=== PATIENT | male | born 2000 | race Caucasian/White ===

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

== ENCOUNTER 2020-07-21 17:39 | Emergency (ER) | payer OTHER, SELFPAY ==
[2020-07-21 17:47] VITALS: BP 127/81; PULSE 94; RESP 16; TEMP 36.9; O2SAT 98
--- NOTE | 2020-07-21 17:58 | NUR.NOTE ---
pt has some abraisions on each vines . Nursing Note:
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
[2020-07-21 19:09] VITALS: BP 155/78; PULSE 74; RESP 18; TEMP 37.2; O2SAT 98
== END 2020-07-21 18:33 | disposition home or self-care (01) ==
PROVIDERS: Emergency Provider Student in an Organized Health Care Education/Training Program; PCP Pediatrics
DX: S80.811A Abrasion, right lower leg, initial encounter (principal); V43.51XA Car driver injured in collision with sport utility vehicle in traffic accident, initial encounter
CPT/HCPCS: 99282; 99283

== ENCOUNTER 2021-01-08 16:39 | Emergency (ER) | payer OTHER, SELFPAY ==
[2021-01-08 16:44] VITALS: BP 139/90; PULSE 71; RESP 20; TEMP 36.4; O2SAT 98
--- NOTE | 2021-01-08 17:21 | ED.GENADUL_ITS ---
Discharge Plan Disposition Patient Disposition: HOME Condition: Good Discharge Details Clinical Impression: Internal hemorrhoid Primary Care Provider: Kalin Reynoso ED Provider: Spring Med[place]in Home Meds and New Rx's Prescriptions: New hydrocortisone [Anusol-HC] 2.5 % cream with perineal applicator [address] BID-QID PRNQty: 30 RF: 1 Colace Clear 50 mg capsule 50 mg PO DAILY Qty: 5 RF: 0 Discharge Instructions Instructions: Hemorrhoids (DC) Additional Instructions: Follow-up with your primary care physician in 1 week for reevaluation Use the medication prescribed for the neck 5 days Take sitz bath once daily Metamucil Return earlier should you have new or worsening complaints including fever, chills, persistent blood in stool Discharge Data Discharge Date/Time-TO BE ENTERED AT DEPARTURE: 01/08/21 17:46 Medical Decision Making Patient appears well, he has a small internal hemorrhoid, he was prescribed Dulcolax and in addition to suppositories He will need follow-up with his primary care physician, return precautions discussed and patient understanding, no indication for blood work, source of scant bleeding and pain likely internal hemorrhoids, return patient expressed understanding No fissure noted on anoscopy, internal hemorrhoid noted Low suspicion for GI bleed, no nonsteroidals, abdominal tenderness, weakness, or dizziness, hemodynamically stable Differential Diagnosis Differential Diagnosis: Hemorrhoid, fissure, GI bleed Medical Records Medical records reviewed: Yes I reviewed the patient's medical records. Lab Data Lab results reviewed: Yes I reviewed the patient's lab results. HPI General Mode of arrival: ambulatory . Date/Time Provider Initiated Documentation: 01/08/21 16:48 . Limitations to Documentation: no limitations . Information obtained by: patient . HPI Narrative: This 20-year-old male presents with report of rectal pain with scant intermittent bleeding when he wipes for the past week. He denies any fever or chills. He denies any chest pain or shortness of breath. He denies any abdominal pain. He denies any history of constipation but has had diarrhea. He states he ate an entire bag of cranberry and subsequently developed diarrhea. Denies anticoagulation. Pain with bowel movements reportedly. Related Data Home Medications Medication Instructions Recorded Confirmed docusate sodium [Colace Clear] 50 mg PO DAILY #5 cap 06/05/21 hydrocortisone [Anusol-HC] [address] BID-QID PRN #30 g 01/08/21 Previous Rx's Medication Instructions Recorded docusate sodium [Colace Clear] 50 mg PO DAILY #5 cap 01/08/21 hydrocortisone [Anusol-HC] [address] BID-QID PRN #30 g 01/08/21 Allergies Allergy/AdvReac Type Severity Reaction Status Date / Time No Known Allergies Allergy Verified 01/08/21 16:48 General Stated Complaint: GenMedical YEIMI: 4 Review of Systems Narrative: Review of systems obtained x7 aside from where indicated in HPI [facility] Medical History Anxiety Asthma Eczema Pilonidal cyst with abscess (~07/05/18) Surgical History Adenoidectomy Myringotomy w/ PE (pressure equalizing) tubes Status post incision and drainage (~07/05/18) Family History Mother Anxiety Father Hyperlipidemia Sister Migraine Hearing loss Sister Attention deficit hyperactivity disorder, combined type Grandparent Diabetes Heart disease Neoplasm Social History Smoking/Tobacco Use Status: Never Second Hand Exposure: No Smoking risk assessment performed?: Yes Alcohol Intake: never Drug use: Never Adopted: No Foster care: No Household members: family Number of Children: 0 Education Level: college Details: CCV current occupation: [employer] in [place] Pets and animals: Yes (1 cat, 1 dog) Pets and animals: cat(s) and dog(s) Current gender identity: male Do you feel safe at home: Yes Do you feel safe in your relationship?: Yes Exam Const General: cooperative Orientation: alert and oriented x3 Resp Effort & Inspection: normal respiratory effort Cardio Rate: regular rate GI Auscultation: normal bowel sounds Other: Abdomen nontender Other: Small internal hemorrhoid noted, no active bleeding Skin General skin exam: no rashes or lesions noted Neuro General: patient alert and patient oriented x3 Course Vital Signs Vital signs: Vital Signs Temperature 36.4 C L 01/08/21 16:44 Pulse 71 01/08/21 16:44 Respiratory Rate 20 01/08/21 16:44 Blood Pressure 139/90 01/08/21 16:44 Pulse Oximetry 98 01/08/21 16:44 Temperature 36.4 C L 01/08/21 16:44 Temperature Source Skin 01/08/21 16:44 Pulse 71 01/08/21 16:44 Respiratory Rate 20 01/08/21 16:44 Respiratory Effort Non-Labored 01/08/21 16:49 Blood Pressure 139/90 01/08/21 16:44 Blood Pressure Position Sitting 01/08/21 16:44 Pulse Oximetry 98 01/08/21 16:44 Oxygen Delivery Method Room Air 01/08/21 16:44 Oxygen Flow Rate 0 01/08/21 16:44 Pain Level 0 01/08/21 16:44
== END 2021-01-08 17:46 | disposition home or self-care (01) ==
PROVIDERS: Emergency Provider Physician Assistant; PCP Pediatrics
DX: K64.8 Other hemorrhoids (principal)
CPT/HCPCS: 99283

== ENCOUNTER 2021-01-24 19:55 | Emergency (ER) | payer OTHER, SELFPAY ==
[2021-01-24 20:08] VITALS: BP 159/100; PULSE 88; RESP 16; TEMP 37.2; O2SAT 99
--- NOTE | 2021-01-24 20:30 | DI.CT_ITS ---
Exam(s) CT ABDOMEN PELVIS W EXAM: CT ABDOMEN PELVIS W CLINICAL HISTORY: RLQ pain TECHNIQUE: COMPARISON: No exams were available for comparison FINDINGS: CT examination of the abdomen and pelvis was performed with bolus infusion of 100 cc of Omnipaque 350 . Images obtained through the lung bases are unremarkable. The liver appears normal with no evidence of a focal mass. Spleen is unremarkable in appearance.. Gallbladder and bile ducts are unremarkable. Pancreas is unremarkable in appearance. Adrenals appear normal bilaterally. Kidneys appear normal with no evidence of renal mass, hydronephrosis, or nephrolithiasis. Unremarkab le bladder. There is no evidence of abdominal or pelvic adenopathy. Abdominal aorta is of normal diameter and no abnormality is seen involving major visceral branches.. Appendix is normal. No evidence diverticulitis or bowel obstruction. No significant abdominal wall hernia seen. Impression: Negative CT examination of the abdomen and pelvis. RADIATION DOSE DELIVERED: 964.38mGy.cm Total DLP 964.38mGy.cm Total DLP DATA REPOSITORY: All CT scans at this facility are submitted to the National Radiology Data Registry (NRDR) Dose Index Registry (DIR) with the [employer] (ACR). RADIATION OPTIMIZATION: All CT scans at this facility use at least one of these dose optimization te chniques: automated exposure control; mA and/or kV adjustment per patient size (includes targeted exa ms where dose is matched to clinical indication); or iterative reconstruction.
[2021-01-24 21:12] LABS: Bilirubin Negative (Negative); Blood Negative (Negative); Clarity Clear (Clear); Glucose Negative (Negative); Ketones Negative (Negative); Leukocyte Esterase Negative (Negative); Nitrite Negative (Negative); Specific Gravity 1.025 (1.005-1.025); Urobilinogen 0.2 EU/dL (Up TO 0.2)
[2021-01-24 21:13] LABS: Abs Immature Grans 0.05 10^3/uL (0.0-0.06); Absolute Basophil Count 0.08 10^3/uL (0.0-0.2); Absolute Eosinophil Count 0.13 10^3/uL (0.0-0.7); Absolute Lymphocyte Count 3.25 10^3/uL (1.2-3.4); Absolute Monocyte Count 0.86 10^3/uL (0.1-0.8); Absolute Neutrophil Count 6.65 10^3/uL (1.2-6.7); Basophils % 0.7; Eosinophils % 1.2; HCT 50.4 % (40.0-50.0); HGB 17.3 g/dL (13.5-17.5); Immature Grans % 0.5; Lymphocytes % 29.5; MCH 28.1 pg (27.0-33.0); MCHC 34.3 % (32.0-36.0); MPV 10.4 fL (8.0-11.0); Monocytes % 7.8; Neutrophils % 60.3; Nucleated RBC 0 %; Platelet Count 254 10^3/uL (130-400); RBC 6.15 10^6/uL (4.36-5.78); RDW 12.5 % (11.8-14.1); RDW-SD 37.2 fL; WBC 11.02 10^3/uL (4.4-10.8)
[2021-01-24] MEDS: Omnipaque 350 MG/ML 100 ML BTL IJ (21:29)
[2021-01-24 21:30] LABS: ALT 63 U/L (16-63); AST 41 U/L (15-37); Albumin 4.5 g/dL (3.4-5.0); Alkaline Phosphatase 122 U/L (46-116); Anion Gap 8.8 mmol/L (3-11); BUN 15 mg/dL (7-18); Bilirubin, Total 0.8 mg/dL (0.2-1.0); CO2 29.2 mmol/L (21.0-32.0); CREATININE 1.2 mg/dL (0.70-1.30); Calcium 9.2 mg/dL (8.5-10.1); Chloride 103 mmol/L (98-107); Glucose 96 mg/dL (74-106); Lipase 136 U/L (73-393); Potassium 4.3 mmol/L (3.5-5.1); Sodium 141 mmol/L (136-145); Total Protein 8.6 g/dL (6.4-8.2)
[2021-01-24] MEDS: Normal Saline - Diluent 50 ML VIAL IV (21:30)
--- NOTE | 2021-01-24 21:56 | DI.VRAD_ITS ---
PROCEDURE INFORMATION: Exam: CT Abdomen And Pelvis With Contrast Exam date and time: 01/24/2021 8:41 PM Age: 20 years old Clinical indication: Abdominal pain; Localized; Right lower quadrant (rlq); Patient HX: Rlq pain TECHNIQUE: Imaging protocol: Computed tomography of the abdomen and pelvis with contrast. COMPARISON: No relevant prior studies available. FINDINGS: Liver: Normal. No mass. Gallbladder and bile ducts: Normal. No calcified stones. No ductal dilation. Pancreas: Normal. No ductal dilation. Spleen: Normal. No splenomegaly. Adrenal glands: Normal. No mass. Kidneys and ureters: Normal. No hydronephrosis. Stomach and bowel: Unremarkable. No obstruction. No mucosal thickening. Appendix: Normal appendix. Intraperitoneal space: Unremarkable. No free air. No significant fluid collection. Vasculature: Unremarkable. No abdominal aortic aneurysm. Lymph nodes: Several prominent mesenteric root lymph nodes are nonspecific. Urinary bladder: Urinary bladder is nondistended. Reproductive: Unremarkable as visualized. Bones/joints: Unremarkable. No acute fracture. Soft tissues: Unremarkable. IMPRESSION: Negative exam. No evidence of acute appendicitis. Dictated and Authenticated by: Zackery Chambers MD. Ordering:WANDA Londono MD
--- NOTE | 2021-01-24 22:22 | ED.GENADUL_ITS ---
Discharge Plan Disposition Patient Disposition: HOME Condition: Good Discharge Details Clinical Impression: Abdominal pain Primary Care Provider: Kalin Reynoso ED Provider: Spring [place] Home Meds and New Rx's Prescriptions: No Action hydrocortisone [Anusol-HC] 2.5 % cream with perineal applicator 1 applic [place] BID-QID PRNQty: 30 RF: 1 Colace Clear 50 mg capsule 50 mg PO DAILY Qty: 5 RF: 0 Discharge Instructions Instructions: Abdominal Pain (ED) Additional Instructions: Repeat blood pressure with primary care physician Follow-up with your doctor regarding your abdominal pain Try eating more fiber and staying away from fatty foods like calcium abdominal Tylenol and ibuprofen as needed for discomfort, return earlier with fever, chills, or with any new or worsening complaints Recommend recheck in 12 hours Discharge Data Discharge Date/Time-TO BE ENTERED AT DEPARTURE: 01/24/21 22:35 Medical Decision Making Denies any urinary complaints, no leukocytosis, CT without evidence of appendicitis per virtual radiology interpretation in my review Discussed diet change, no evidence of acute cholecystitis on CT scan, patient will follow up with his primary care physician Discharged home in stable condition with stable vitals, declines any analgesia tried Return precautions discussed, recheck in 12 to 24 hours with persistent pain recommended Differential Diagnosis Differential Diagnosis: Appendicitis, cholecystitis, IBS, urinary tract infection Medical Records Medical records reviewed: Yes I reviewed the patient's medical records. Lab Data Lab results reviewed: Yes I reviewed the patient's lab results. HPI General Mode of arrival: ambulatory . Date/Time Provider Initiated Documentation: 01/24/21 20:09 . Limitations to Documentation: no limitations . Information obtained by: patient . HPI Narrative: This 20-year-old male presents with abdominal pain for the past several hours. He states that the pain is around his umbilicus. He denies any radiation of pain. He denies any testicular pain or urinary symptoms. He denies any fever or chills. Denies chest pain or shortness of breath. He denies dizziness or weakness. States that his pain is improved actually with standing and walking and worsened when he lays flat. He denies nausea or vomiting or any additional complaints at this time. Related Data Home Medications Medication Instructions Recorded Confirmed docusate sodium [Colace Clear] 50 mg PO DAILY #5 cap 01/08/21 01/24/21 hydrocortisone [Anusol-HC] 1 applic [place] BID-QID PRN #30 g 01/08/21 01/24/21 Previous Rx's Medication Instructions Recorded docusate sodium [Colace Clear] 50 mg PO DAILY #5 cap 01/08/21 hydrocortisone [Anusol-HC] 1 applic [place] BID-QID PRN #30 g 01/08/21 Allergies Allergy/AdvReac Type Severity Reaction Status Date / Time No Known Allergies Allergy Verified 01/24/21 20:16 General Stated Complaint: Abd Prob YEIMI: 3 Review of Systems Narrative: Review of systems obtained x7 aside from where indicated in HPI [facility] Medical History Anxiety Asthma Eczema Pilonidal cyst with abscess (~07/05/18) Surgical History Adenoidectomy Myringotomy w/ PE (pressure equalizing) tubes Status post incision and drainage (~07/05/18) Family History Mother Anxiety Father Hyperlipidemia Sister Migraine Hearing loss Sister Attention deficit hyperactivity disorder, combined type Grandparent Diabetes Heart disease Neoplasm Social History Smoking/Tobacco Use Status: Never Second Hand Exposure: No Smoking risk assessment performed?: Yes Alcohol Intake: never Drug use: Never Adopted: No Foster care: No Household members: family Number of Children: 0 Education Level: college Details: CCV current occupation: [employer] in [place] Pets and animals: Yes (1 cat, 1 dog) Pets and animals: cat(s) and dog(s) Current gender identity: male Do you feel safe at home: Yes Do you feel safe in your relationship?: Yes Exam Const General: cooperative and no acute distress HENMT Other: moist mucous membranes Resp Effort & Inspection: normal respiratory effort Cardio Rate: regular rate GI Other: Periumbilical abdominal tenderness without rebound or guarding Skin General skin exam: no rashes or lesions noted Neuro General: patient alert and patient oriented x3 Course Vital Signs Vital signs: Vital Signs Temperature 37.2 C 01/24/21 20:08 Pulse 88 01/24/21 20:08 Respiratory Rate 16 01/24/21 20:08 Blood Pressure 159/100 H 01/24/21 20:08 Pulse Oximetry 99 01/24/21 20:08 Temperature 37.2 C 01/24/21 20:08 Temperature Source Oral 01/24/21 20:08 Pulse 88 01/24/21 20:08 Respiratory Rate 16 01/24/21 20:08 Respiratory Effort Non-Labored 01/24/21 20:14 Blood Pressure 159/100 H 01/24/21 20:08 Blood Pressure Position Standing 01/24/21 20:08 Pulse Oximetry 99 01/24/21 20:08 Oxygen Delivery Method Room Air 01/24/21 20:08 Oxygen Flow Rate 0 01/24/21 20:08 Pain Level 6 01/24/21 20:17 Lab/Test Results Lab/Test Results: Laboratory Tests Range/Units 01/24/21 01/24/21 01/24/21 20:05 21:00 21:00 WBC (4.4-10.8) 10^3/uL 11.02 H RBC (4.36-5.78) 10^6/uL 6.15 H Hgb (13.5-17.5) g/dL 17.3 Hct (40.0-50.0) % 50.4 H MCV (80-95) fL 82.0 MCH (27.0-33.0) pg 28.1 MCHC (32.0-36.0) % 34.3 RDW (11.8-14.1) % 12.5 Plt Count (130-400) 10^3/uL 254 MPV (8.0-11.0) fL 10.4 Immature Gran % 0.5 Neutrophils % 60.3 Lymphocytes % 29.5 Monocytes % 7.8 Eosinophils % 1.2 Basophils % 0.7 Nucleated RBC % % 0 Absolute Neutrophils (1.2-6.7) 10^3/uL 6.65 Absolute Lymphocytes (1.2-3.4) 10^3/uL 3.25 Absolute Monocytes (0.1-0.8) 10^3/uL 0.86 H Absolute Eosinophils (0.0-0.7) 10^3/uL 0.13 Absolute Basophils (0.0-0.2) 10^3/uL 0.08 Sodium (136-145) mmol/L 141 Potassium (3.5-5.1) mmol/L 4.3 Chloride (98-107) mmol/L 103 Carbon Dioxide (21.0-32.0) mmol/L 29.2 Anion Gap (3-11) mmol/L 8.8 BUN (7-18) mg/dL 15 Creatinine (0.70-1.30) mg/dL 1.2 Estimated GFR/1.73 m2 (mL/min/1.73m2) >= 60.00 Glucose (74-106) mg/dL 96 Calcium (8.5-10.1) mg/dL 9.2 Total Bilirubin (0.2-1.0) mg/dL 0.8 AST (15-37) U/L 41 H ALT (16-63) U/L 63 Alkaline Phosphatase (46-116) U/L 122 H Total Protein (6.4-8.2) g/dL 8.6 H Albumin (3.4-5.0) g/dL 4.5 Lipase (73-393) U/L 136 Urine Color (Yellow) Yellow Urine Clarity (Clear) Clear Urine pH (5-8) 7.0 Ur Specific Shirley (1.005-1.025) 1.025 Urine Protein (Negative) mg/dL Negative Urine Ketones (Negative) mg/dL Negative Urine Blood (Negative) Negative Urine Nitrite (Negative) Negative Urine Bilirubin (Negative) Negative Urine Urobilinogen (Up TO 0.2) EU/dL 0.2 Ur Leukocyte Esterase (Negative) Negative Urine Glucose (Negative) mg/dL Negative
[2021-01-24 22:30] VITALS: BP 125/49; PULSE 62; RESP 16; O2SAT 97
== END 2021-01-24 22:35 | disposition home or self-care (01) ==
PROVIDERS: Emergency Provider Physician Assistant; PCP Pediatrics
DX: R10.9 Unspecified abdominal pain (principal)
CPT/HCPCS: 36415; 80053; 83690; 99285; 74177; 81003; 85025; 99283; J3490

== ENCOUNTER 2024-05-16 11:34 | Emergency (ER) | payer MEDICAID, SELFPAY ==
[2024-05-16 11:35] VITALS: BP 137/74; PULSE 90; RESP 18; TEMP 36.9; O2SAT 97
--- NOTE | 2024-05-16 11:45 | DI.RAD_ITS ---
Exam(s) XR HAND RT COMPLETE EXAM: XR HAND RT COMPLETE CLINICAL HISTORY: Right thumb crush injury, also injured distal 2-4. TECHNIQUE: 2D digital imaging was performed. COMPARISON: No exams were available for comparison FINDINGS: 3 views No evidence of acute fracture nor dislocation nor abnormal soft tissue densities. No radiopaque fore ign bodies. No osseous lesions. Bone density normal. IMPRESSION: No acute osseous findings. DATA REPOSITORY: RADIATION DOSE DELIVERED:
--- NOTE | 2024-05-16 12:04 | ED.GENADUL_ITS ---
Discharge Plan Disposition Patient Disposition: Home Condition: Stable Discharge Details Clinical Impression: Contusion of right thumb Primary Care Provider: Cindy,Local ED Provider: Lalita Reardon Home Meds and New Rx's Prescriptions: No Action No Known Home Meds Discharge Instructions Instructions: Minor Contusion ED Additional Instructions: You were seen in the emergency department today for evaluation of a thumb injury. He had a full physical examination performed and an x-ray that was without any sign of fracture. You were given a splint for comfort and can use Tylenol and ibuprofen to manage pain from your injury. Please follow-up with your primary care provider in the next few days to discuss this visit and any symptoms that change, worsen, or persist. Thank you for allowing us to be part of your care. Stand Alone Forms: Work Release HPI General Mode of arrival: ambulatory . Date/Time Provider Initiated Documentation: 05/16/24 11:39 . Limitations to Documentation: no limitations . Information obtained by: patient and old records reviewed . HPI Narrative: HPI: This is a 23-year-old male patient, previously healthy presenting for evaluation of a right thumb injury. The patient works at [employer], was adjusting a metal piston that came loose and crushed his thumb against the metal side of the machine. He also struck the distal aspect of his right second third and fourth digits. This happened last night, the patient did not sustain any additional injury. He reports that he has not tried anything for pain, had a small laceration on the back of his thumb that is hemostatic, states that he is having ongoing pain at this time. He is able to bend his thumb though it does cause him some pain to do so. He has no sensory deficits, appears well- perfused. Otherwise in his normal state of health. He is not sure when his last tetanus vaccine was but is not interested in repeat vaccination today. Exam: Gen: Awake and alert, in no apparent distress HEENT: Non-icteric sclera Neck: Supple Lungs: No apparent respiratory distress, normal respiratory effort. CV: Appears well perfused Abdomen: Non-distended MSK: Moves 4 extremities without apparent limitation in ROM. The patient has bruising of the right thumb with a very small subungual hematoma, no eponychial fold involvement. Preserved range of motion passively of the thumb, some reproduction of pain with flexion against resistance. No difficulty with range of motion of the 2nd through 4th digits of the right hand, cap refill brisk, no sensory deficits Skin: Visualized skin without rashes, cyanosis. 3 mm well-approximated laceration to the dorsal aspect of the left thumb over the proximal phalanx, hemostatic Neuro: Normal Gait, no obvious focal deficits or facial asymmetry. Speaks in full, clear sentences. Psych: Appropriate for situation. MDM: This is a 23-year-old male patient presenting for evaluation of a hand injury. My differential includes but is not limited to fracture, contusion, ligamentous injury, dislocation. The small laceration on the back of the thumb does not require any wound care or management. The patient is not desiring of any medications for pain at this time, but we will proceed with x-ray imaging of the affected right hand to evaluate for injury ED Course: X-ray imaging negative for fracture or dislocation making contusion of the most likely etiology of the patient's symptoms. I did provide him with a splint for comfort, I recommended conservative management with Tylenol, ibuprofen, and primary care follow-up. At this time, the patient has had a full medical evaluation and is safe for discharge to home. They are hemodynamically stable, ambulatory, and tolerating PO. They are understanding of the follow-up plan and return precautions. They left our facility without incident. Lalita Reardon MD Related Data Home Medications ?Medication ?Instructions ?Recorded ?Confirmed Unknown [No Known Home Meds] 05/16/24 05/16/24 Allergies Allergy/AdvReac Type Severity Reaction Status Date / Time No Known Allergies Allergy Verified 05/16/24 11:39 General Stated Complaint: Orthopedic YEIMI: 4 Course Vital Signs Vital signs: Vital Signs Temperature 36.9 C 05/16/24 11:35 Pulse 90 05/16/24 11:35 Respiratory Rate 18 05/16/24 11:35 Blood Pressure 137/74 05/16/24 11:35 Pulse Oximetry 97 05/16/24 11:35 Temperature 36.9 C 05/16/24 11:35 Temperature Source Oral 05/16/24 11:35 Pulse 90 05/16/24 11:35 Respiratory Rate 18 05/16/24 11:35 Respiratory Effort Normal, Non-Labored 05/16/24 11:40 Blood Pressure 137/74 05/16/24 11:35 Blood Pressure Position Sitting 05/16/24 11:35 Pulse Oximetry 97 05/16/24 11:35 Oxygen Delivery Method Room Air 05/16/24 11:35 Oxygen Flow Rate 0 05/16/24 11:35 Medical Decision Making Quality:SDOH Health Related Social Needs: No Data to Display PFSH All Active Problems (Updated 05/16/24 @ 12:59 by Lalita Reardon MD) Contusion of right thumb (Acute) Constipation in male (Acute) due to poor diet/lack of dietary fiber Chronic anal fissure (Acute) Abdominal pain (Acute) BMI (body mass index), pediatric, 95-99% for age (Acute 01/05/14) Medical History (Updated 05/16/24 @ 12:59 by Lalita Reardon MD) Rhianna-rectal abscess Asthma Eczema Anxiety Surgical History Status post incision and drainage (~07/05/18) Myringotomy w/ PE (pressure equalizing) tubes Adenoidectomy Family History Mother Anxiety Father Hyperlipidemia Sister Migraine Hearing loss Sister Attention deficit hyperactivity disorder, combined type Grandparent Diabetes Heart disease Neoplasm Social History Smoking/Tobacco Use Status: Never Second Hand Exposure: No Smoking risk assessment performed?: Yes Alcohol Intake: never Drug use: Never Substance use type: does not use Adopted: No Foster care: No Household members: family Housing: house Number of Children: 0 Education Level: college Details: [employer] current occupation: [employer] in [place] Pets and animals: Yes (1 cat, 1 dog) Pets and animals: cat(s) and dog(s) Current gender identity: male Do you feel safe at home: Yes Do you feel safe in your relationship?: Yes
--- OUTSIDE RECORDS SUMMARY | 2024-05-16 12:19 | XMS_ITS | Encounter Summary ---
Author Organization [facility] Address [address] [place] [address] Care Team Providers Care Casino Investigator Name Role Phone Unavailable Primary Care Provider Unavailabl e Encounter Details Date Type Department Care Team (Late st Contact Info) Description 08/31/2005 Before PRISM Converted Visit (Maple) [facility] - Maple conversion [address], [place] [id number] Tony Laws MD [address] [facility], [facility] [address] [place] [id number] Social History Tobacco Use Types Packs/Day Years Used Date Smoking Tobacco: Never Assessed Sex and Gender Information Value Date Recorded Sex Assigned at Not on file Gender Identity Not on file Sexual Orientation Not on file documented as of this encounter Progress Notes * Tony Laws MD - 10/06/2009 0540 EST DIVISION OF OTOLARYNGOLOGY September 04, 2005 Fariha Glover MD [facility] [address] [place] [address] [place] [address] R: DOS Dear Dr. Glover: Thanks very much for Trechristofer Bland. He was seen in my office at the request of the familywhen they were here with their sister for a nasal examination. Endoscopic examination of the nasopharynx revealed small adenoid tissue. There was no significant blockage. He did have purulent rhinitis in both nasal cavities. Ear drums were normal today with normal tympanograms and normal hearing. Ithink with his history, I will just check him back in three months and see how hes been doing. Wellmake some plans from there. Thanks for the referral. Sincerely, Signed by Tony Laws MD 09/04/2005 17:16 Lori Chen MD Tony Laws MD - Tony Laws MD A - wlp Job ID: [id number] Document ID: [id number] cc: Fariha Glover MD * Tony Laws MD - 10/06/2009 0540 EST DIVISION OF OTOLARYNGOLOGY PROGRESS/FOLLOWUP NOTE - 08/31/2005 S:has had chronic purulent rhinitis. He had his adenoids removed three or four years ago. He has had troubles during the past year. Prior to that he had been okay following his surgery. He has had some complains of ear pain also, but no recent ear infections. O:alert, cooperative male in no distress today. Both tympanic membranes show some mild fluid, but tympanograms were normal today with a normal speech member of congress threshold. Speech member of congress thresholds are 5 decibels in both earsand normal hearing on a test. Both ear canals look normal. Oral cavity reveals 2+ tonsils. Palpation of the neck reveals no adenopathy. Nasal exam reveals a purulent rhinitis bilaterally with a midline septum and normal turbinates. Cophenylcaine was sprayed in the right nasal cavity revealing small adenoid tissue with purulent rhinitis throughout the nasal cavity. Palpation of the neck reveals no adenopathy. A: Chronic purulent rhinitis. P: Follow up in three months. Contingency: Re-adenoidectomy and/or CT scan. Signed by Tony Laws MD 09/04/2005 17:16 Lori Chen MD Tony Laws MD - Tony Laws MD A - wlp Job ID: [id number] Document ID: [id number] cc: documented in this encounter Plan of Treatment Not on file documented as of this encounter Visit Diagnoses Not on filedocumented in this encounter
--- OUTSIDE RECORDS SUMMARY | 2024-05-16 12:19 | XMS_ITS | Referral Summary ---
Author Organization [facility] Address [address] [place] [address] Care Team Providers Care Leather Production Artisan Name Role Phone Unknown, Provider Primary Care Provider [phone] Social History Tobacco Use Types Packs/Day Years Used Date Smoking Tobacco: Never Assessed Sex and Gender Information Value Date Recorded Sex Assigned at Not on file Gender Identity Not on file Sexual Orientation Not on file Plan of Treatment Not on file Care Teams Leather Production Artisan Relationship Specialty Start Date End Date Unknown, Provider, PCP - General 12/02/15
--- OUTSIDE RECORDS SUMMARY | 2024-05-16 12:19 | XMS_ITS | Encounter Summary ---
Author Organization [facility] Address [address] [place] [address] Care Team Providers Care Assessment Analyst Name Role Phone Unknown, Provider Primary Care Provider Encounter Details Date Type Department Care Team (Late st Contact Info) Description 11/11/2023 Lab Requisition [facility] - [address] [address] Channing Grossman PA-C [address] [place] [phone] Encounter for other general examination Social History Tobacco Use Types Packs/Day Years Used Date Smoking Tobacco: Never Assessed Sex and Gender Information Value Date Recorded Sex Assigned at Not on file Gender Identity Not on file Sexual Orientation Not on file documented as of this encounter Plan of Treatment Not on file documented as of this encounter Procedures Procedure Name Priority Date/Time Associated Diagnosis Comments HEPATITIS A TOTAL ANTIBODY - IMMUNITY Today 11/11/2023 9:30 EDT Encounter for other general examination HEPATITIS A ANTIBODY IGM Today 11/11/2023 9:30 EDT Encounter for other general examination HEPATITIS A TOTAL ANTIBODY W REFLEX Today 11/11/2023 9:30 EDT Encounter for other general examination HEPATITIS B CORE ANTIBODY (TOTAL) Today 11/11/2023 9:30 EDT Encounter for other general examination HEPATITIS B SURFACE ANTIBODY Today 11/11/2023 9:30 EDT Encounter for other general examination HEPATITIS B SURFACE ANTIGEN Today 11/11/2023 9:30 EDT Encounter for other general examination HEMOGLOBIN S SCREEN Today 11/11/2023 9 :30 EDT Encounter for other general examination documented in this encounter Results * HEPATITIS A ANTIBODY IGM (11/11/2023 9:30 EDT) Hepatitis A Antibody, IgM Negative Negative 11/12/2023 11:39 EDT [facility] Blood VENOUS BLOOD / Unknown 11/11/2023 9:30 EDT 11/11/2023 13:46 EDT Narrative [facility] - 11/12/2023 11:39 EDT The results of this assay can be falsely lowered due to the consumption of Biotin. Channing Grossman PA-C CHEMISTRY & BL OOD GAS ORDERABLES Performing Organization Address City/[facility]/ZIP Co de Phone Number [facility] [address] [place] [address] * HEPATITIS B CORE ANTIBODY (TOTAL) (11/11/2023 9:30 EDT) Pathologist [facility] Hepatitis B Core Ab, Total Negative Negative 11/12/2023 10:16 EDT [facility] Blood VENOUS BLOOD / Unknown 11/11/2023 9:30 EDT 11/11/2023 13:46 EDT Channing Grossman PA-C CHEMISTRY & BL OOD GAS ORDERABLES [facility] [address] [place] [address] * HEPATITIS B SURFACE ANTIGEN (11/11/2023 9:30 EDT) Hep B Surface Ag Negative Negative 11/12/2023 9:36 EDT [facility] Blood VENOUS BLOOD / Unknown 11/11/2023 9:30 EDT 11/11/2023 13:46 EDT Channing Grossman PA-C CHEMISTRY & BL OOD GAS ORDERABLES Performing Organization Address [facility] Co de Phone Number [facility] [address] [place] [address] * HEPATITIS B SURFACE ANTIBODY (11/11/2023 9:30 EDT) Hep B Surface Ab, Quantitative 44.7 See Note mIU/mL 11/12/2023 9:29 EDT [facility] Comment: Reference Range for Hep B Surface Ab, Quant: Positive: >= 10.0 mIU/mL Negative: ??< 10.0 mIU/mL Patient is presumed to be immune to infection with Hepatitis B Virus. Hep B Surface Ab, Qualitative Positive See Note 11/12/2023 9:29 EDT [facility] Comment: Reference Range for Hep B Surface Ab, Qual: Unvaccinated: ??Negative Vaccinated: ??Positive Blood VENOUS BLOOD / Unknown 11/11/2023 9:30 EDT 11/11/2023 13:46 EDT Channing Grossman PA-C CHEMISTRY & BL OOD GAS ORDERABLES Performing Organization Address [facility] de Phone Number [facility] [address] [place] [address] * (ABNORMAL) HEPATITIS A TOTAL ANTIBODY W REFLEX (11/11/2023 9:30 EDT) Hepatitis A Antibody, Total Positive(A ) Negative 11/12/2023 10:38 EDT [facility] Blood VENOUS BLOOD / Unknown 11/11/2023 9:30 EDT 11/11/2023 13:46 EDT Narrative [facility] - 11/12/2023 10:38 EDT The result of this assay can be falsely elevated (Positive) due to the consumption of Biotin. Channing Grossman PA-C CHEMISTRY & BL OOD GAS ORDERABLES Performing Organization Address [facility]/ZIP Co de Phone Number [facility] [address] [place], [place] [phone] * (ABNORMAL) HEPATITIS A TOTAL ANTIBODY - IMMUNITY (11/11/2023 9:30 EDT) Hepatitis A Antibody, Total Positive(A ) Negative 11/12/2023 10:19 EDT [facility] Comment:This test is for det ection of immunity or past infection with Hepatitis A Virus, not acute disease. Reflex to hepatitis A IgM antibody NOT performed. Blood VENOUS BLOOD / Unknown 11/11/2023 9:30 EDT 11/11/2023 13:46 EDT Narrative [facility] - 11/12/2023 10:19 EDT The result of this assay can be falsely elevated (Positive) due to the consumption of Biotin. Channing Grossman PA-C CHEMISTRY & BL OOD GAS ORDERABLES Performing Organization Address [facility] Co de Phone Number [facility] [address] [place] [phone] * HEMOGLOBIN S SCREEN (11/11/2023 9:30 EDT) Pathologist [facility] Sickle Cell Prep Negative Negative 11/12/2023 13:26 EDT [facility] Blood VENOUS BLOOD / Unknown 11/11/2023 9:30 EDT 11/11/2023 13:46 EDT Channing Grossman PA-C HEMATOLOGY & P F4 ORDERABLES Performing Organization Address City/[facility] Co de Phone Number [facility] [address] [place] [address], [place] [phone] documented in this encounter Visit Diagnoses Diagnosis Encounter for other general examination documented in this encounter Care Teams Assessment Analyst Relationship Specialty Start Date End Date Unknown, Provider, PCP - General 12/02/15 documented as of this encounter
--- OUTSIDE RECORDS SUMMARY | 2024-05-16 12:19 | XMS_ITS | Continuity of Care Document ---
Author Name [facility] Organization [facility] Care Team Providers Care Channel Cementer Name Role Phone [facility] Unavailable Unavailable Allergies, Adverse Reactions, Alerts Combined list of allergies from Department of Defense and Veterans Affairs facilities. It does not include entries that were removed or entered in error. Substance Category Reaction Severity Reaction type Status Date Reported Comments Source No Known Allergies Drug allergy (disorder) active 2 [facility] Immunizations Combined list of available immunizations from the Department of Defense and Veterans Affairs facilities. Immunization Series Date Given Administered By Site Reaction Lot Number CVX Code Drug Manager Solution Status Comments Source tetanus, diphtheria, acellular pertu is 2021 zzRig ht Arm [id number] GlaxoSmithKli ne complet ed tetanus, diphtheri a, acellular pertussis 11/04/21 Given Ambulat ory Pharmac y hepatitis A adult vaccine 2021 zzLef t Arm [id number] 52 GlaxoSmithKli ne complet ed hepatitis A adult vaccine 11/04/21 Given Ambulat ory Pharmac y meningococcal A,C,Y,W-135 (MCV4P) 2021 zzLef t Arm [id number] sanofi pasteur complet ed meningoco ccal A,C,Y,W-1 35 (MCV4P) 11/04/21 Given Ambulat ory Pharmac y adenovirus vaccine, live 2021 [id number] 143 Teva Pharmaceut[employer] ls complet ed adenoviru s vaccine, live 11/04/21 Given Ambulat ory Pharmac y influenza, injectable, quadrivalent- pf 2021 zzLef t Arm [id number] 150 GlaxoSmithKli ne complet ed influenza , injectabl e, quadrival ent-pf 11/04/21 Given Ambulat ory Pharmac y poliovirus vaccine, inactivated 2021 zzRig ht Arm [id number] 10 GlaxoSmithKli ne complet ed polioviru s vaccine, inactivat ed 11/04/21 Given Ambulat ory Pharmac y measles, mumps and rubella virus vaccine 0 2021 EXEMPT 03 Transcribed (TRS) Not Given measles, mumps and rubella virus vaccine DoD poliovirus vaccine, inactivated 1 2021 JORGE GEORGE [id number] 10 [facility] (B) complet ed polioviru s vaccine, inactivat ed DoD varicella virus vaccine 0 2021 EXEMPT 21 Transcribed (TRS) Not Given varicella virus vaccine DoD hepatitis B vaccine, unspecified formulation 0 2021 EXEMPT 45 Transcribed (TRS) Not Given hepatitis B vaccine, unspecifi ed formulati on DoD hepatitis A vaccine, adult dosage 1 2021 JORGE GEORGE [id number] 52 [facility] ([facility]) complet ed hepatitis A vaccine, adult dosage DoD meningococcal polysaccharid e (groups A, C, Y and W-135) diphtheria toxoid conjugate vaccine (MCV4P) 1 2021 JORGE GEORGE [id number] 114 Sanofi Pasteur ([facility]) complet ed meningoco ccal polysacch aride (groups A, C, Y and W-135) diphtheri a toxoid conjugate vaccine (MCV4P) DoD tetanus toxoid, reduced diphtheria toxoid, and acellular pertu is vaccine, adsorbed 1 2021 JORGE GEORGE [id number] 115 [facility] ([facility]) complet ed tetanus toxoid, reduced diphtheri a toxoid, and acellular pertussis vaccine, adsorbed DoD Adenovirus, type 4 and type 7, live, oral 1 2021 JORGE GEORGE [id number] [facility] ([facility]) complet ed Adenoviru s, type 4 and type 7, live, oral [facility] Influenza, injectable, quadrivalent, preservative free 1 2021 JORGE GEORGE [id number] 150 [facility] ([facility]) complet ed Influenza , injectabl e, quadrival ent, preservat karolina free DoD tuberculin purified protein derivative 2021 zzLef t Arm [id number] 96 [facility] complet ed Patient Tolerance : Negative Ambulat ory Pharmac y tuberculin skin test; purified protein derivative solution, intradermal 1 2021 ZACHARY IYER O [id number] 96 [place] (PD) complet ed tuberculi n skin test; purified protein derivativ e solution, intraderm al DoD influenza, injectable, quadrivalent 2020 [id number] 158 [employer] complet ed influenza , injectabl e, quadrival ent 05/29/21 Given Ambulat ory Pharmac y influenza, injectable, quadrivalent, contains preservative 0 2020 [id number] 158 [employer] (SEQ) complet ed influenza , injectabl e, quadrival ent, contains preservat karolina DoD COVID Vaccine Moderna 2020 [id number] complet ed COVID Vaccine Moderna 12/31/20 Given Ambulat ory Pharmac y SARS-COV-2 (COVID-19) vaccine, mRNA, spike protein, LNP, preservative free, 100 mcg or 50 mcg dose 2 2020 [id number] 207 Moderna [employer] (MOD) complet ed SARS-COV- 2 (COVID-19 ) vaccine, mRNA, spike protein, LNP, preservat karolina free, 100 mcg or 50 mcg dose DoD COVID Vaccine Moderna 2020 [id number] complet ed COVID Vaccine Moderna 12/01/20 Given Ambulat ory Pharmac y SARS-COV-2 (COVID-19) vaccine, mRNA, spike protein, LNP, preservative free, 100 mcg or 50 mcg dose 1 2020 [id number] 207 Moderna [employer] (MOD) complet ed SARS-COV- 2 (COVID-19 ) vaccine, mRNA, spike protein, LNP, preservat karolina free, 100 mcg or 50 mcg dose DoD influenza, injectable, quadrivalent 2019 [id number] 278 158 [employer] complet ed influenza , injectabl e, quadrival ent 06/18/20 Given Ambulat ory Pharmac y influenza, injectable, quadrivalent, contains preservative 1 2019 [id number] 278 158 [employer] (SEQ) complet ed influenza , injectabl e, quadrival ent, contains preservat karolina DoD Vital Signs Combined list of inpatient and outpatient Vital Signs from Department of Defense and Veterans Affairs, ranging from 12 months to all on record, depending upon the facility. Vital Sign Value Date Comments Source No data available for this section Ambulatory Pharmacy Encounters Combined list of: 1) Encounters from Department of Veterans Affairs facilities going back up to thelast 18 months. 2) Encounters from the Department of [facility] facilities going back up to 280 months. Location Location Details Encounter Type Encounter Number Reason For Visit Attending Provider ADM Date DC Date Status Disposition Source [facility](P Primary Care) OUTPATIENT [id number] Notes Entered by: SHADE IYER 02 Nov 2021 0736 ------- ------- ------- ------- -- IET PPD ZACHARY IYER 11/02 Released w/o Limitations [facility](I EP Primary Care) [facility](P Optometry ) OUTPATIENT [id number] DALTON RIVERA 11/02 Released w/o Limitations [facility](I EP Optomet ry) [facility](P Primary Care) OUTPATIENT [id number] Notes Entered by: LAURA MARKHAM 07 Nov 2021 1012 ------- ------- ------- ------- -- IEJORGE CHILD 11/07 Released w/o Limitations [facility](I EP Primary Care) [facility]([address]) OUTPATIENT [id number] Notes Entered by: UZIEL JEFFREY 07 Feb 2022 1000 ------- ------- ------- ------- -- [facility] GEOVANY JEFFREY 02/07 Released w/o Limitations [facility]([address]) [facility]([address]) OUTPATIENT [id number] Sinus congest ion - Muscle aches MAGGIE BOX 02/22 Released with Work/Duty Limitations [facility]([address]) [facility]([address]) OUTPATIENT [id number] Notes Entered by: UZIEL JEFFREY 23 Mar 2022 1030 ------- ------- ------- ------- -- [facility]- GEOVANY CARNEY 03/23 Released with Work/Duty Limitations [facility]([address]) Procedures Combined list of: 1) Procedures from Department of Veterans Affairs facilities going back up to thelast 18 months, not all VA non-surgical procedures are included; 2) All procedures from the Department of Defense facilities. Procedure Procedure Type Code Date Perfomer Comments Sourc e No data available for this section Ambulato ry Pharmacy Skin Test Anergy Tuberculin Intradermal Skin Test Anergy Tuberculin Intradermal 49200 IYER, CHEEDZA IPPD; Series #: 1; 0.1 mL; ID; Left Arm; Mfg: [place]; Lot: [id number]; VIS given. [facility] Ophthalmological New Patient Start Intermediate Level Care Ophthalmological New Patient Start Intermediate Level Care [address] [facility] Spectacles Services Fitting Monofocal Except For Aphakia Spectacles Services Fitting Monofocal Except For Aphakia [address] [facility] Determination Of Refractive State Determination Of Refractive State [address] [facility] Immunization Administration By Injection, One Vaccine Immunization Administration By Injection, One Vaccine 24225 [facility] Immunization Administration By Injection, Each Additional Vaccine Immunization Administration By Injection, Each Additional Vaccine 57263 [facility] Hepatitis A Vaccine Adult Dosage (Intramuscular Use) Hepatitis A Vaccine Adult Dosage (Intramuscular Use) 9[address]23 [facility] Vaccines Viral Polio, Inactivated Vaccines Viral Polio, Inactivated 29965 [facility] Meningococcal Conjugate Vaccine Quadrivalent Serogroups A, C, Y, W-135 Meningococcal Conjugate Vaccine Quadrivalent Serogroups A, C, Y, W-135 80129 [facility] Tdap Vaccine Tdap Vaccine 54563 [facility] Immunization Admin Intranasal / Oral Each Additional Vaccine Immunization Admin Intranasal / Oral Each Additional Vaccine 24200 [facility] Vaccines Adenovirus Type 4 Live, For Oral Use Vaccines Adenovirus Type 4 Live, For Oral Use 58029 [facility] Vaccines Adenovirus Type 7 Live, For Oral Use Vaccines Adenovirus Type 7 Live, For Oral Use 59102 [facility] Influenza Split Virus Vaccine IM Preserv Free 0.5mL Dosage Quadrivalent Influenza Split Virus Vaccine IM Preserv Free 0.5mL Dosage Quadrivalent 40968 [facility] INFLUENZA VIRUS VACCINE, QUADRIVALENT (IIV4), SPLIT VIRUS, PRESERVATIVE FREE, 0.5 ML DOSAGE, FOR INTRAMUSCULAR USE [facility] DETERMINATION OF REFRACTIVE STATE [facility] EAR MOLD/INSERT, NOT DISPOSABLE, ANY TYPE [facility] SKIN TEST; TUBERCULOSIS, INTRADERMAL [facility] Social History Combined list of available smoking, tobacco, and other social history from Department of Defense and Veterans Affairs facilities. Social History Type Response Date Comment Sourc e This section is an empty social history section. DoD Assessment and Plan Combined list of future care activities from Department of Defense and Veterans Affairs facilities (e.g., assessment and plan notes, appointments, orders, and referrals). Additional future care activities may be listed in the Plan of Care section. Result Assessment and Plan Date Source Assessment and Plan No data available for this section 05/16/2024 Ambulatory Pharmacy Functional Status Combined list of recent functional and cognitive assessments recorded at Department of Defense and Veterans Affairs (VA).VA Functional [place] Measurement (FIM) Scale: 1 = Total Assistance (Subject = 0% +), 2 = Maximal Assistance (Subject = 25% +), 3 = Moderate Assistance (Subject = 50% +), 4 = Minimal Assistance (Subject = 75% +), 5 = Supervision, 6 = Modified [place] (Device), 7 = Complete [place] (Timely, Safely). Assessment Date/Time Source Assessment Type Assessment Skill Assessment Score Assessment Details No data available for this section
--- OUTSIDE RECORDS SUMMARY | 2024-05-16 12:19 | XMS_ITS | Encounter Summary ---
Author Organization [facility] Address [address] [place] [address] Care Team Providers Care Motor Vehicle Or Caravan Salesperson Name Role Phone Unknown, Provider Primary Care Provider [phone] Encounter Details Date Type Department Care Team (Late st Contact Info) Description 12/10/2022 Lab Requisition [facility] Pathology & Laboratory Medicine - [address] [id number] Channing Grossman PA-C [address] [place] [address] Encounter for other general examination [...] Procedure Name Priority Date/Time Associated Diagnosis Comments GLUCOSE 6-PHOSPHATE DEHYDROGENASE ENZYME ACTIVITY,BLD Today 12/10/2022 9:40 EDT Encounter for other general examination documented in this encounter Results * GLUCOSE 6-PHOSPHATE DEHYDROGENASE ENZYME ACTIVITY,BLD (12/10/2022 9:40 EDT) G6PD ENZYME ACTIVITY, B 9.6 8.0 - 11.9 U/g Hb 12/13/2022 12:23 EDT [facility] Comment: Evkadeo-6-Hfmtwdjki Dehydrogenase (G6PD) deficiency is classified according to WHO criteria based on enzyme activity level but accurate classification requires correlation with clinical and possibly genetic data. Enzyme levels less than 10% of mean normal (less than 1.0 U/g Hb) are found in WHO class I (chronic) and class II (episodic) variants. Levels between 10 and 60% (1.0 to 6.0 U/g Hb) can be seen in class III (episodic) variants or female carrier states and genotyping can be useful in this range. Levels greater than 60% (greater than 6.0 U/g Hb) are considered sufficient and are seen in normal persons, female carrier states, or G6PD variants with subclinical effect (WHO class IV). Note: G6PD deficiency can be masked in the setting of reticulocytosis, markedly elevated WBCs or recent transfusion. If any of these are present in the setting of , chronic or episodic jaundice/anemia, genotyping is recommended. If desired, please order G6PDB (G6PD Full Gene Sequencing). ADDITIONAL INFORMATION This test was developed and its performance characteristics determined by [facility] in a manner consistent with CLIA requirements. This test has not been cleared or approved by the U.S. Food and Drug Administration. Test Performed by: [address] [address] It Security Analyst: Cortez García M.D. Ph.D.; CLIA# [id number] Blood VENOUS BLOOD / Unknown Non-Lab Collect / Unknown 12/10/2022 9:40 EDT 12/10/2022 12:40 EDT Channing Grossman PA-C CHEMISTRY & BL OOD GAS ORDERABLES [address] [address] documented in this encounter Visit Diagnoses Diagnosis Encounter for other general examination documented in this encounter Care Teams Motor Vehicle Or Caravan Salesperson Relationship Specialty Start Date End Date Unknown, Provider, PCP - General 12/02/15 documented as of this encounter
--- OUTSIDE RECORDS SUMMARY | 2024-05-16 12:19 | XMS_ITS | Encounter Summary ---
Author Organization [facility] Address [address] [place] [address] Care Team Providers Care Watchguard Name Role Phone Unavailable Primary Care Provider Unavailabl e Encounter Details Date Type Department Care Team (Late st Contact Info) Description 08/31/2005 9:38 EST Hospital Encounter [address] [id number] Tony Laws MD [address] [place] [address], [address] [place] [id number] Social History Tobacco Use Types Packs/Day Years [...]
--- OUTSIDE RECORDS SUMMARY | 2024-05-16 12:19 | XMS_ITS | Clinical Summary ---
Author Organization [facility] Address [address] [place] [address] Care Team Providers Care Entry Level Chemist Name Role Phone Unknown, Provider Primary Care Provider [phone] Social History Tobacco Use Types Packs/Day Years Used Date Smoking Tobacco: Never Assessed Sex and Gender Information Value Date Recorded Sex Assigned at Not on file Gender Identity Not on file Sexual Orientation Not on file Plan of Treatment Health Maintenance Due Date Last Done Comments Hepatitis C Screen 2000 Hepatitis B Vaccine (1 of 3 - 19+ 3-dose series) 07/02 COVID-19 Vaccine ( season) 2023 Care Teams Entry Level Chemist Relationship Specialty Start Date End Date Unknown, Provider, PCP - General 12/02/15
[2024-05-16 13:05] VITALS: BP 126/80; PULSE 78; RESP 18; TEMP 36.8; O2SAT 99
== END 2024-05-16 13:06 | disposition home or self-care (01) ==
PROVIDERS: Emergency Provider Emergency Medicine
DX: S60.011A Contusion of right thumb without damage to nail, initial encounter (principal); W31.89XA Contact with other specified machinery, initial encounter; Y93.89 Activity, other specified; Y92.89 Other specified places as the place of occurrence of the external cause; Y99.0 Civilian activity done for income or pay
CPT/HCPCS: 99283; 73130

== ENCOUNTER 2025-03-09 13:25 | Emergency (ER) | payer OTHER, SELFPAY ==
[2025-03-09] VITALS (32 sets, daily range): BP systolic 122–148; BP diastolic 72–88; PULSE 53–79; RESP 16–18; TEMP 36.8; O2SAT 97–100
--- NOTE | 2025-03-09 13:15 | RT.EKG_ITS ---
APPROVED REPORT Exam: Resting ECG Reason for Exam: HTN Patient Location: E HR:62 bpm ECG Measurements Heart Rate 62 AXIS OR 141 P 35 QRSd 84 QRS 50 QT 363 T 54 QTc 362 Conclusion Sinus rhythm...normal P axis, V-rate 60- 99 Atrial premature complex...SV complex w/ short R-R interval Sinus Rhythm with premature atrial complex. WD
--- NOTE | 2025-03-09 15:42 | ED.GENADUL_ITS ---
Discharge Plan Disposition Patient Disposition: Home Condition: Good Discharge Details Clinical Impression: Blood pressure elevated without history of HTN Primary Care Provider: Cindy,Local ED Provider: Tracey Song Home Meds and New Rx's Prescriptions: New losartan 25 mg tablet 25 mg PO DAILY Qty: 30 0RF Discharge Instructions Instructions: High Blood Pressure ED, DASH diet Additional Instructions: Your elevated blood pressure readings are consistent with new onset hypertension. A referral has been placed to care management to help you establish care with a primary care provider. occupational therapist's assistant they will be able to help you with your insurance application. Your workup today was very reassuring You are being started on antihypertensive medication. Please use the losartan daily as prescribed. I recommend that you decrease your caffeine intake as well as sodium intake to help with your blood pressure. Continue monitoring your blood pressure at home. Return to emergency care if you develop new chest pains, difficulty breathing, episodes of feeling like you are going to pass out, or if you are very worried you need to be rechecked again immediately Referrals: Care Management [Provider Group] HPI General Date/Time Provider Initiated Documentation: 03/09/25 14:35 . HPI Narrative: Tre is a 24-year-old male who presents to the emergency department accompanied by his and children for evaluation of elevated blood pressure. Monitoring BP at home and [facility], both elevated (up to 150s systolic). He reports migratory body aches, occasional neck discomfort, occasional episodes of lightheadedness. Last week he had an episode of flushing to his face with a headache that resolved when he slept. Denies recent illness, fever/chills, congestion, sore throat, cough, vision changes, chest pain, dyspnea, pa lpitations, nausea/vomiting, abdominal pain, change in bowel or bladder function, pedal edema. Denies excessive caffeine use. Does not use tobacco, marijuana, or alcohol on a regular basis. Says he is generally healthy, no significant past medical history. Denies family history of connective tissue disorders; father was diagnosed with hypertension at a young age as well. Does not currently have a PCP. Related Data Home Medications ?Medication ?Instructions ?Recorded ?Confirmed losartan 25 mg tablet 25 mg PO DAILY #30 tabs 11/28 Previous Rx's ?Medication ?Instructions ?Recorded losartan 25 mg tablet 25 mg PO DAILY #30 tabs 11/28 Allergies Allergy/AdvReac Type Severity Reaction Status Date / Time No Known Allergies Allergy Verified 03/09/25 13:30 General Stated Complaint: [facility]Medical YEIMI: 3 Exam Narrative Exam Narrative: General Appearance: Normal. Patient is alert and oriented, no acute distress Vital signs: Hypertension noted, BP 148/88. No tachycardia, tachypnea, fever, or hypoxia Respiratory: Easy work of breathing, lung sounds clear bilaterally, no wheezes, rales, or rhonchi. Cardiovascular: Normal heart sounds, no murmurs. Gastrointestinal: Soft, non-tender abdomen, no pulsatile masses or organomegaly. Back, Musculoskeletal: No ankle swelling. Skin: Warm and dry, no rash. Psychiatric: Normal. Course Vital Signs Vital signs: Vital Signs Temperature 36.8 C 03/09/25 13:27 Pulse 67 03/09/25 13:27 Respiratory Rate 16 03/09/25 13:27 Blood Pressure 148/88 H 03/09/25 13:27 Pulse Oximetry 97 03/09/25 13:27 Temperature 36.8 C 03/09/25 13:31 Temperature Source Oral 03/09/25 13:31 Pulse 53 L 03/09/25 15:21 Respiratory Rate 16 03/09/25 15:21 Respiratory Effort Normal, Non-Labored 03/09/25 15:21 Respiratory Depth Normal 03/09/25 15:21 Respiratory Pattern Normal 03/09/25 15:21 Blood Pressure 144/78 H 03/09/25 15:21 Blood Pressure Mean 100 03/09/25 15:21 Blood Pressure Position Sitting 03/09/25 15:21 Pulse Oximetry 99 03/09/25 15:21 Oxygen Delivery Method Room Air 03/09/25 15:21 Oxygen Flow Rate 0 03/09/25 15:21 Pain Level 0 03/09/25 13:31 Medical Decision Making Initial Assessment: Elevated BP with intermittent symptoms. Patient has been checking blood pressure at home, blood pressure has been consistently in the 150s systolic for the last couple of weeks. Strong family history of hypertension at a young age ED Course: - Comprehensive physical exam - Advised to reduce caffeine - Increase vegetables - Referral to care management for insurance and PCP connection - Blood work ordered for thyroid dysfunction, electrolyte imbalance, or kidney issues I independently interpreted the following tests: EKG shows normal sinus rhythm, rate 62, no changes consistent with acute ischemia. CBC, CMP, TSH all unremarkable. Clinical Impression: - Elevated BP, no red flags concerning for target endorgan damage. Will initiate antihypertensives and have patient follow-up with PCP. A referral placed to care management to help patient establish care with new PCP Disposition: - Discharge home - Follow up with PCP for BP management and further evaluation - reviewed discharge instruction with patient, including symptomatic management, use of antihypertensives, dietary management, and red flags indicating need for return to emergency care Follow-Up: - Referral to care management for PCP connection and insurance assistance Patient Education: Reduce caffeine, increase vegetables, importance of regular BP monitoring and follow-up with PCP. Patient consented to the use of FAISAL PFSH All Active Problems (Updated 03/09/25 @ 15:47 by Tracey Combs) Blood pressure elevated without history of HTN (Acute) Constipation in male (Acute) due to poor diet/lack of dietary fiber Chronic anal fissure (Acute) Abdominal pain (Acute) BMI (body mass index), pediatric, 95-99% for age (Acute 01/05/14) Medical History (Updated 03/09/25 @ 15:47 by Tracey Combs) Rhianna-rectal abscess Asthma Eczema Anxiety Surgical History Status post incision and drainage (~07/05/18) Myringotomy w/ PE (pressure equalizing) tubes Adenoidectomy Family History Mother Anxiety Father Hyperlipidemia Sister Migraine Hearing loss Sister Attention deficit hyperactivity disorder, combined type Grandparent Diabetes Heart disease Neoplasm Social History Smoking/Tobacco Use Status: Never Second Hand Exposure: No Smoking risk assessment performed?: Yes Alcohol Intake: never Drug use: Never Substance use type: does not use Adopted: No Foster care: No Household members: family Housing: house Number of Children: 0 Education Level: college Details: [employer] current occupation: [employer] in [place] Pets and animals: Yes (1 cat, 1 dog) Pets and animals: cat(s) and dog(s) Current gender identity: male Do you feel safe at home: Yes Do you feel safe in your relationship?: Yes
[2025-03-09 16:06] LABS: Abs Immature Grans 0.05 10^3/uL (0.0-0.06); HCT 49.3 % (40.0-50.0); HGB 17.0 g/dL (13.5-17.5); Immature Grans % 0.5 %; MCH 28.4 pg (27.0-33.0); MCHC 34.5 % (32.0-36.0); MCV 82 fL (80-95); MPV 9.5 fL (8.0-11.0); Platelet Count 254 10^3/uL (130-400); RBC 5.98 10^6/uL (4.36-5.78); RDW 13.2 % (11.8-14.1); RDW-SD 39.3 fL; WBC 10.04 10^3/uL (4.4-10.8)
[2025-03-09 16:51] LABS: ALT 93 U/L (16-63); AST 41 U/L (15-37); Albumin 4.0 g/dL (3.4-5.0); Alkaline Phosphatase 111 U/L (46-116); Anion Gap 6.5 mmol/L (3-11); BUN 15 mg/dL (7-18); Bilirubin, Total 0.9 mg/dL (0.2-1.0); CO2 29.5 mmol/L (21.0-32.0); Calcium 8.7 mg/dL (8.5-10.1); Chloride 105 mmol/L (98-107); Estimated GFR 107.78 (mL/min/1.73m2); Glucose 93 mg/dL (74-106); Potassium 3.9 mmol/L (3.5-5.1); Sodium 141 mmol/L (136-145); TSH (W/Ref FT4) 0.82 uIU/mL (0.36-3.74); Total Protein 7.7 g/dL (6.4-8.2)
--- NOTE | 2025-03-09 18:14 | NUR.NOTE ---
Nursing Note: Received call from patient that [facility] where [facility] sent. Prescription verbally called into [facility] in [facility]
== END 2025-03-09 17:33 | disposition home or self-care (01) ==
PROVIDERS: Emergency Provider Nurse Practitioner Family
DX: R03.0 Elevated blood-pressure reading, without diagnosis of hypertension (principal)
CPT/HCPCS: 99284 ×2; 80053; 93005; 84443; 85025; 93010